=== PATIENT | female | born 1995 | race American Indian/Alaskan Native ===

== ENCOUNTER 2020-07-28 02:50 | Inpatient (IN) | payer OTHER ==
[2020-07-28 04:20] LABS: Hemoglobin 10.7 gm/dl (10.1-14.3)
[2020-07-28 04:31] LABS: Mean Corpuscular Volume 74 fl (79-97); Red Blood Count 4.18 M/mm3 (3.65-5.03)
[2020-07-28 04:32] LABS: Mean Corpuscular HGB Conc 35 % (30-34); Platelet Count 394 K/mm3 (140-440); Red Cell Distribution Width 18.2 % (13.2-15.2)
[2020-07-28 04:35] LABS: BUN/Creatinine Ratio 10; Blood Urea Nitrogen 8 mg/dL (7-17); Calcium 9.2 mg/dL (8.4-10.2); Hemolysis Index 4
[2020-07-28 05:13] LABS: Anisocytosis 1+; Band Neutrophils # (Manual) 0.8 K/mm3; Basophils % (Manual) 0 % (0.0-1.8); Hypochromasia 1+; Total Cells Counted 100
[2020-07-28 05:14] LABS: Schistocytes Few; Sickle Cells Few; Target Cells 1+
[2020-07-28 05:15] LABS: Platelet Estimate Consistent w Auto
[2020-07-28] MEDS ORDERED: LACTATED RINGERS 1000 ML IV SOLN IV ONE (08:26)
[2020-07-28] MEDS ORDERED: MORPHINE 4 MG/1 ML INJ IV ONE (08:26)
[2020-07-28] MEDS ORDERED: ALBUTEROL 2.5 MG/3 ML NEBU IH ONE (08:27)
--- NOTE | 2020-07-28 08:28 | Emergency Department Report ---
ED General Adult HPI - General Chief complaint: Sickle Cell Crisis Stated complaint: SICKLE CELL CRISIS PUI?: No Time Seen by Provider: 07/28/20 08:12 Source: patient, RN notes reviewed Mode of arrival: Ambulatory Limitations: No Limitations - History of Present Illness Initial comments: The patient was evaluated in the emergency department for symptoms described in the history of present illness. He/she was evaluated in the context of the global COVID-19 pandemic, which necessitated consideration that the patient might be at risk for infection with the virus that causes COVID-19. Institutional protocols and algorithms that pertain to the evaluation of patients at risk for COVID-19 are in a state of rapid change based on information released by regulatory bodies including the CDC and federal and state organizations. These policies and algorithms were followed during the patient's care in the emergency department. Please note that these policies, procedures and recommendations changed on a rapid basis. During the history and physical examination, I am chaperoned by nurse Екатерина Sandoval This is a 24-year-old female. She is not known to myself previously. She recently moved here from [facility]. She reports a history of sickle cell disease. She states that she is not , and has not delivered or given within the past 6 weeks. Patient presents to the ER with a primary complaint of bilateral lower extremity, and upper extremity pain, secondary to sickle cell crisis. She reports that for the past week or so, she has been having "flu symptoms", which include sore throat, dry cough. No loss of taste, no loss of smell. No exposure to Covid positive individuals that she is aware of. She also endorses intermittent shaking chills, and rigors. She states that she was feeling okay at home, taking [id number] ibuprofen/Advil. However, she reports that her lower extremities and upper extremities began to hurt her last night and this morning, consistent with prior episodes of sickle cell crisis and pain. Positive facial congestion, positive nasal congestion, positive cough, positive mild shortness of breath -: Gradual, days(s) Location: left, right, upper extremity, lower extremity Radiation: non-radiation Severity scale (0 -10): 9 Consistency: constant Improves with: medication, rest Worsens with: movement - Related Data Home Medications Medication Instructions Recorded Confirmed Last Taken Acetaminophen [Acetaminophen ER] 650 mg PO Q4H PRN 07/28/20 07/28/20 Unknown Allergies Allergy/AdvReac Type Severity Reaction Status Date / Time No Known Allergies Allergy Unverified 07/28/20 03:52 ED Review of Systems ROS: Stated complaint: SICKLE CELL CRISIS Other details as noted in HPI Constitutional: chills, fever, malaise, weakness ENT: other. denies: epistaxis Respiratory: cough, shortness of breath Cardiovascular: denies: chest pain Gastrointestinal: denies: abdominal pain, nausea, vomiting, diarrhea Genitourinary: denies: dysuria Musculoskeletal: arthralgia, myalgia Skin: denies: lesions Neurological: weakness Hematological/Lymphatic: denies: easy bleeding ED Past Medical Hx - Past Medical History Previous Medical History?: Yes Hx Sickle Cell Disease: Yes - Surgical History Past Surgical History?: No - Social History Smoking Status: Never Smoker Substance Use Type: None - Medications Home Medications: Home Medications Medication Instructions Recorded Confirmed Last Taken Type Acetaminophen [Acetaminophen ER] 650 mg PO Q4H PRN 07/28/20 07/28/20 Unknown History ED Physical Exam - General Limitations: No Limitations General appearance: alert, in no apparent distress - Head Head exam: Present: atraumatic, normocephalic - Eye Eye exam: Present: normal appearance, EOMI. Absent: nystagmus - ENT ENT exam: Present: normal exam, normal orophraynx, mucous membranes moist, normal external ear exam - Neck Neck exam: Present: normal inspection, full ROM. Absent: tenderness, meningismus - Respiratory Respiratory exam: Present: rhonchi (Right-sided thoracic rhonchi noted.). Absent: respiratory distress, wheezes, rales, stridor - Cardiovascular Cardiovascular Exam: Present: normal rhythm, tachycardia, normal heart sounds. Absent: bradycardia, irregular rhythm, systolic murmur, diastolic murmur, rubs, gallop - GI/Abdominal GI/Abdominal exam: Present: soft. Absent: distended, tenderness, guarding, rebound, rigid, pulsatile mass - Extremities Exam Extremities exam: Present: normal inspection, full ROM, other (2+ pulses noted in the bilateral upper and lower extremities. There is no palpable cord. negative Homans sign. Muscular compartments are soft. The pelvis is stable.). Absent: pedal edema, calf tenderness - Back Exam Back exam: Present: normal inspection, full ROM. Absent: tenderness, CVA tend erness (R), CVA tenderness (L), paraspinal tenderness, vertebral tenderness - Neurological Exam Neurological exam: Present: alert, other (No facial droop. Tongue midline. Extraocular movements intact bilaterally. Facial sensation intact to light touch in V1, V2, V3 distribution bilaterally. 5 and a 5 strength in 4 extremities. Sensation intact to light touch in 4 extremities.). Absent: motor sensory deficit - Psychiatric Psychiatric exam: Present: normal affect, normal mood - Skin Skin exam: Present: warm, dry, intact, normal color. Absent: rash ED Course Vital Signs 07/28/20 07/28/20 07/28/20 03:48 08:14 08:16 Temperature 100.0 F H 98.6 F Pulse Rate 118 H 113 H 113 H Pulse Rate [ Posterior Right Bases] Respiratory 18 24 Rate Respiratory Rate [Posterior Right Bases] Blood Pressure 114/63 Blood Pressure 113/74 [Left] O2 Sat by Pulse 95 100 Oximetry 07/28/20 07/28/20 09:47 09:49 Temperature 100.2 F H Pulse Rate 113 H Pulse Rate [ 114 H Posterior Right Bases] Respiratory 24 Rate Respiratory 18 Rate [Posterior Right Bases] Blood Pressure Blood Pressure 106/51 [Left] O2 Sat by Pulse 100 Oximetry ED Medical Decision Making - Lab Data Result diagrams: 07/28/20 04:06 07/28/20 04:06 Vital Signs 07/28/20 07/28/20 08:14 08:16 Temperature 98.6 F Pulse Rate 113 H 113 H Respiratory 24 Rate Blood Pressure 113/74 [Left] O2 Sat by Pulse 100 Oximetry Lab Results 07/28/20 07/28/20 07/28/20 Range/Units 04:06 04:06 04:06 WBC 38.5 H (4.5-11.0) K/mm3 RBC 4.18 (3.65-5.03) M/mm3 Hgb 10.7 (10.1-14.3) gm/dl Hct 31.0 (30.3-42.9) % MCV 74 L (79-97) fl MCH 26 L (28-32) pg MCHC 35 H (30-34) % RDW 18.2 H (13.2-15.2) % Plt Count 394 (140-440) K/mm3 Add Manual Diff Complete Total Counted 100 Seg Neuts % (Manual) 85.0 H (40.0-70.0) % Band Neutrophils % 2.0 % Lymphocytes % (Manual) 2.0 L (13.4-35.0) % Reactive Lymphs % (Man) 0 % Monocytes % (Manual) 10.0 H (0.0-7.3) % Eosinophils % (Manual) 1.0 (0.0-4.3) % Basophils % (Manual) 0 (0.0-1.8) % Metamyelocytes % 0 % Myelocytes % 0 % Promyelocytes % 0 % Blast Cells % 0 % Nucleated RBC % 1.0 H (0.0-0.9) % Seg Neutrophils # Man 32.7 H (1.8-7.7) K/mm3 Band Neutrophils # 0.8 K/mm3 Lymphocytes # (Manual) 0.8 L (1.2-5.4) K/mm3 Abs React Lymphs (Man) 0.0 K/mm3 Monocytes # (Manual) 3.9 H (0.0-0.8) K/mm3 Eosinophils # (Manual) 0.4 (0.0-0.4) K/mm3 Basophils # (Manual) 0.0 (0.0-0.1) K/mm3 Metamyelocytes # 0.0 K/mm3 Myelocytes # 0.0 K/mm3 Promyelocytes # 0.0 K/mm3 Blast Cells # 0.0 K/mm3 WBC Morphology Not Reportable Hypersegmented Neuts Not Reportable Hyposegmented Neuts Not Reportable Hypogranular Neuts Not Reportable Smudge Cells Not Reportable Toxic Granulation Not Reportable Toxic Vacuolation Not Reportable Dohle Bodies Not Reportable Pelger-Huet Anomaly Not Reportable Melissa Rods Not Reportable Platelet Estimate Consistent w auto Clumped Platelets Not Reportable Plt Clumps, EDTA Not Reportable Large Platelets Not Reportable Giant Platelets Not Reportable Platelet Satelliting Not Reportable Plt Morphology Comment Not Reportable RBC Morphology Not Reportable Dimorphic RBCs Not Reportable Polychromasia Few Hypochromasia 1+ Poikilocytosis Not Reportable Anisocytosis 1+ Microcytosis Not Reportable Macrocytosis Not Reportable Spherocytes Not Reportable Pappenheimer Bodies Not Reportable Sickle Cells Few Target Cells 1+ Tear Drop Cells Not Reportable Ovalocytes Not Reportable Helmet Cells Not Reportable [place] Bodies Not Reportable [place] Rings Not Reportable [place] Cells Not Reportable Bite Cells Not Reportable Crenated Cell Not Reportable Elliptocytes Not Reportable Acanthocytes (Spur) Not Reportable Rouleaux Not Reportable Hemoglobin C Crystals Not Reportable Schistocytes Few Malaria parasites Not Reportable Percent Retic 4.63 H (0.78-2.58) % Hugo Bodies Not Reportable Hem Pathologist Commnt No Sodium 137 (137-145) mmol/L Potassium 3.8 (3.6-5.0) mmol/L Chloride 103.7 (98-107) mmol/L Carbon Dioxide 21 L (22-30) mmol/L Anion Gap 16 mmol/L BUN 8 (7-17) mg/dL Creatinine 0.8 (0.6-1.2) mg/dL Estimated GFR > 60 ml/min BUN/Creatinine Ratio 10 % Glucose 114 H (65-100) mg/dL Calcium 9.2 (8.4-10.2) mg/dL HCG, Qual Negative (Negative) - EKG Data -: EKG Interpreted by Ne EKG shows normal: sinus rhythm Rate: tachycardia - EKG Data When compared to previous EKG there are: previous EKG unavailable 07/28/20 09:05 Sinus tachycardia, 105 bpm, normal axis, QTC 440 ms, low voltage, abnormal EKG, no prior for comparison, the EKG is not a STEMI - Radiology Data Radiology results: pending, report reviewed, image reviewed - Medical Decision Making Differential diagnosis, including but not limited to: Sickle cell crisis, bacteremia, viremia, pneumonia, urinary tract infection Assessment and plan: 24-year-old female who describes a viral syndrome, shaking chills, intermittent fever, now with focal rhonchi in her right hemithorax and lung field, suspicious for post viral pneumonia. Covid also possibility, although I do not have high suspicion for Covid. Patient ruling in for systemic inflammatory response syndrome, manifest by tachycardia, and leukocytosis. Meets criteria for hospitalization secondary to the aforementioned, and also given that she does not have an outpatient primary care doctor with whom she can reliably follow-up with. Do not have high suspicion for strep. Check rapid flu, to appropriately cohort patient, x-ray the chest, blood cultures, lactic acid, urinalysis, administer albuterol, pain medication, fluids, ceftriaxone, Covid screen, and admit patient to the medical service. I have discussed this plan of care with the patient. She is amenable to this plan of care. The hospital physician, Dr. Power, is to admit the patient to the medical service for the aforementioned. Critical care attestation.: If time is entered above; I have spent that time in minutes in the direct care of this critically ill patient, excluding procedure time. ED Disposition Clinical Impression: SIRS (systemic inflammatory response syndrome), Sickle cell crisis, Viral syndrome Disposition: OP ADMIT IP TO THIS HOSP Is pt being admited?: Yes Does the pt Need Aspirin: No Condition: Good
[2020-07-28] MEDS ORDERED: ONDANSETRON 4 MG/2 ML INJ ONE (09:00)
[2020-07-28] MEDS ORDERED: ONDANSETRON 4 MG/2 ML INJ IV ONE (09:12)
[2020-07-28] MEDS: cefTRIAXone/NS 2 GM/100 ML 2 GM/100 ML BAG IV SCH (09:37)
--- NOTE | 2020-07-28 10:04 | History and Physical Report ---
History of Present Illness Date of examination: 07/28/20 Date of admission: 07/28/20 09:17 Chief complaint: sickle cell pain crisis History of present illness: 24-year-old female with significant past medical history of sickle cell disease presents with complaint of bilateral lower extremity, and upper extremity pain beginning last night progressively worsening this morning associated with flu- like symptoms including sore throat, dry cough, chills and rigors but no fever. The patient denies loss of taste or exposure to Covid positive individuals. No headache or visual disturbances. She does report shortness of breath with minimal exertion. Past History Past Medical History: other (Sickle cell disease) Past Surgical History: No surgical history Social history: no significant social history Family history: no significant family history Medications and Allergies Allergies Allergy/AdvReac Type Severity Reaction Status Date / Time No Known Allergies Allergy Unverified 07/28/20 03:52 Home Medications Medication Instructions Recorded Confirmed Last Taken Type Acetaminophen [Acetaminophen ER] 650 mg PO Q4H PRN 07/28/20 07/28/20 Unknown History Active Meds: Active Medications Ceftriaxone Sodium (Rocephin/Ns 2 Gm/100 Ml) 2 gm in 100 mls @ 200 mls/hr IV NOW LUIS ENRIQUE; Protocol Last Admin: 07/28/20 09:37 Dose: 200 mls/hr Documented by: Review of Systems All systems: negative Exam - Constitutional Vitals: Temp Pulse Resp BP Pulse Ox 100.2 F H 113 H 24 106/51 100 07/28/20 09:49 07/28/20 09:49 07/28/20 09:49 07/28/20 09:49 07/28/20 09:49 General appearance: Present: no acute distress, well-nourished - EENT Eyes: Present: PERRL ENT: hearing intact, clear oral mucosa - Neck Neck: Present: supple, normal ROM - Respiratory Respiratory effort: normal Respiratory: bilateral: CTA - Cardiovascular Heart Sounds: Present: S1 & S2. Absent: rub, click - Extremities Extremities: pulses symmetrical, No edema Peripheral Pulses: within normal limits - Abdominal General gastrointestinal: Present: soft, non-tender, non-distended, normal bowel sounds Female genitourinary: Present: normal - Integumentary Integumentary: Present: clear, warm, dry - Musculoskeletal Musculoskeletal: gait normal, strength equal bilaterally - Psychiatric Psychiatric: appropriate mood/affect, intact judgment & insight - Neurologic Neurologic: CNII-XII intact, moves all extremities Results - Labs CBC & Chem 7: 07/28/20 04:06 07/28/20 04:06 Labs: Laboratory Last Values WBC 38.5 K/mm3 (4.5-11.0) H 07/28/20 04:06 RBC 4.18 M/mm3 (3.65-5.03) 07/28/20 04:06 Hgb 10.7 gm/dl (10.1-14.3) 07/28/20 04:06 Hct 31.0 % (30.3-42.9) 07/28/20 04:06 MCV 74 fl (79-97) L 07/28/20 04:06 MCH 26 pg (28-32) L 07/28/20 04:06 MCHC 35 % (30-34) H 07/28/20 04:06 RDW 18.2 % (13.2-15.2) H 07/28/20 04:06 Plt Count 394 K/mm3 (140-440) 07/28/20 04:06 Add Manual Diff Complete 07/28/20 04:06 Total Counted 100 07/28/20 04:06 Seg Neuts % (Manual) 85.0 % (40.0-70.0) H 07/28/20 04:06 Band Neutrophils % 2.0 % 07/28/20 04:06 Lymphocytes % (Manual) 2.0 % (13.4-35.0) L 07/28/20 04:06 Reactive Lymphs % (Man) 0 % 07/28/20 04:06 Monocytes % (Manual) 10.0 % (0.0-7.3) H 07/28/20 04:06 Eosinophils % (Manual) 1.0 % (0.0-4.3) 07/28/20 04:06 Basophils % (Manual) 0 % (0.0-1.8) 07/28/20 04:06 Metamyelocytes % 0 % 07/28/20 04:06 Myelocytes % 0 % 07/28/20 04:06 Promyelocytes % 0 % 07/28/20 04:06 Blast Cells % 0 % 07/28/20 04:06 Nucleated RBC % 1.0 % (0.0-0.9) H 07/28/20 04:06 Seg Neutrophils # Man 32.7 K/mm3 (1.8-7.7) H 07/28/20 04:06 Band Neutrophils # 0.8 K/mm3 07/28/20 04:06 Lymphocytes # (Manual) 0.8 K/mm3 (1.2-5.4) L 07/28/20 04:06 Abs React Lymphs (Man) 0.0 K/mm3 07/28/20 04:06 Monocytes # (Manual) 3.9 K/mm3 (0.0-0.8) H 07/28/20 04:06 Eosinophils # (Manual) 0.4 K/mm3 (0.0-0.4) 07/28/20 04:06 Basophils # (Manual) 0.0 K/mm3 (0.0-0.1) 07/28/20 04:06 Metamyelocytes # 0.0 K/mm3 07/28/20 04:06 Myelocytes # 0.0 K/mm3 07/28/20 04:06 Promyelocytes # 0.0 K/mm3 07/28/20 04:06 Blast Cells # 0.0 K/mm3 07/28/20 04:06 WBC Morphology Not Reportable 07/28/20 04:06 Hypersegmented Neuts Not Reportable 07/28/20 04:06 Hyposegmented Neuts Not Reportable 07/28/20 04:06 Hypogranular Neuts Not Reportable 07/28/20 04:06 Smudge Cells Not Reportable 07/28/20 04:06 Toxic Granulation Not Reportable 07/28/20 04:06 Toxic Vacuolation Not Reportable 07/28/20 04:06 Dohle Bodies Not Reportable 07/28/20 04:06 Pelger-Huet Anomaly Not Reportable 07/28/20 04:06 Melissa Rods Not Reportable 07/28/20 04:06 Platelet Estimate Consistent w auto 07/28/20 04:06 Clumped Platelets Not Reportable 07/28/20 04:06 Plt Clumps, EDTA Not Reportable 07/28/20 04:06 Large Platelets Not Reportable 07/28/20 04:06 Giant Platelets Not Reportable 07/28/20 04:06 Platelet Satelliting Not Reportable 07/28/20 04:06 Plt Morphology Comment Not Reportable 07/28/20 04:06 RBC Morphology Not Reportable 07/28/20 04:06 Dimorphic RBCs Not Reportable 07/28/20 04:06 Polychromasia Few 07/28/20 04:06 Hypochromasia 1+ 07/28/20 04:06 Poikilocytosis Not Reportable 07/28/20 04:06 Anisocytosis 1+ 07/28/20 04:06 Microcytosis Not Reportable 07/28/20 04:06 Macrocytosis Not Reportable 07/28/20 04:06 Spherocytes Not Reportable 07/28/20 04:06 Pappenheimer Bodies Not Reportable 07/28/20 04:06 Sickle Cells Few 07/28/20 04:06 Target Cells 1+ 07/28/20 04:06 Tear Drop Cells Not Reportable 07/28/20 04:06 Ovalocytes Not Reportable 07/28/20 04:06 Helmet Cells Not Reportable 07/28/20 04:06 Gonzales-[place] Bodies Not Reportable 07/28/20 04:06 [place] Rings Not Reportable 07/28/20 04:06 Mary Cells Not Reportable 07/28/20 04:06 Bite Cells Not Reportable 07/28/20 04:06 Crenated Cell Not Reportable 07/28/20 04:06 Elliptocytes Not Reportable 07/28/20 04:06 Acanthocytes (Spur) Not Reportable 07/28/20 04:06 Rouleaux Not Reportable 07/28/20 04:06 Hemoglobin C Crystals Not Reportable 07/28/20 04:06 Schistocytes Few 07/28/20 04:06 Malaria parasites Not Reportable 07/28/20 04:06 Percent Retic 4.63 % (0.78-2.58) H 07/28/20 04:06 Hugo Bodies Not Reportable 07/28/20 04:06 Hem Pathologist Commnt No 07/28/20 04:06 Sodium 137 mmol/L (137-145) 07/28/20 04:06 Potassium 3.8 mmol/L (3.6-5.0) 07/28/20 04:06 Chloride 103.7 mmol/L (98-107) 07/28/20 04:06 Carbon Dioxide 21 mmol/L (22-30) L 07/28/20 04:06 Anion Gap 16 mmol/L 07/28/20 04:06 BUN 8 mg/dL (7-17) 07/28/20 04:06 Creatinine 0.8 mg/dL (0.6-1.2) 07/28/20 04:06 Estimated GFR > 60 ml/min 07/28/20 04:06 BUN/Creatinine Ratio 10 % 07/28/20 04:06 Glucose 114 mg/dL (65-100) H 07/28/20 04:06 Lactic Acid 0.90 mmol/L (0.7-2.0) 07/28/20 08:50 Calcium 9.2 mg/dL (8.4-10.2) 07/28/20 04:06 Magnesium 1.90 mg/dL (1.7-2.3) 07/28/20 08:50 Total Creatine Kinase 86 units/L (30-135) 07/28/20 08:50 HCG, Qual Negative (Negative) 07/28/20 04:06 Group A Strep Rapid Negative (Negative) 07/28/20 09:00 Fagan/IV: IV Catheter Type [Right INT / Saline Lock Forearm] Assessment and Plan Assessment and plan: Sickle cell vaso-occlusive crisis. Patient will be placed on the sickle cell pathway and treated with supportive care of IV pain medication and IV fluid hydration. Sepsis. Patient meets criteria given the leukocytosis, tachycardia and diagnosi s of acute bronchitis. Check rapid flu, to appropriately cohort patient for PUI, chest x-ray, follow-up blood cultures, lactic acid, urinalysis, administer albuterol, pain medication, fluids, ceftriaxone, Covid screen, and admit patient to medical floor. Acute bronchitis. Will start IV antibiotics
--- NOTE | 2020-07-28 10:24 | XRay Report ---
XR chest 1V ap INDICATION / CLINICAL INFORMATION: cough rhonchi, right sided pna COMPARISON: None available. FINDINGS: SUPPORT DEVICES: None. HEART / MEDIASTINUM: No significant abnormality. LUNGS / PLEURA: Parenchymal opacity is seen in the right lung base Costophrenic sulci are sharp. No p neumothorax. ADDITIONAL FINDINGS: No significant additional findings. IMPRESSION: 1. Parenchymal opacities in the right lung base could be related to airspace disease such as pneumoni a or atelectasis. Signer Name: Joaquim Rodas MD Signed: 07/28/2020 10:19 AM Workstation Name: [id number]
[2020-07-28] MEDS ORDERED: MAGNESIUM HYDROXIDE (MOM) ORAL LIQD UDC PO PRN (11:00)
[2020-07-28] MEDS ORDERED: HYDROmorphone 2 MG/1 ML INJ IV PRN (11:00)
[2020-07-28] MEDS ORDERED: ONDANSETRON 4 MG/2 ML INJ IV PRN (11:00)
[2020-07-28] MEDS: HYDROmorphone 1 MG/1 ML INJ IV PRN ×3 (13:20→21:12)
[2020-07-28] MEDS: AZITHROMYCIN 500 MG in SODIUM CHLORIDE 0.9% 250ML 250 ML IV SCH (13:20)
[2020-07-28] MEDS: ACETAMINOPHEN 325 MG TAB PO PRN (14:26)
[2020-07-28] MEDS: SENNOSIDES 8.6 MG TAB PO SCH (22:00)
[2020-07-29] MEDS: HYDROmorphone 1 MG/1 ML INJ IV PRN ×5 (01:16→21:12)
[2020-07-29] MEDS: diphenhydrAMINE 50 MG/ML VIAL IV PRN ×3 (03:15→21:13)
[2020-07-29 03:40] LABS: Bilirubin,Urine NEG (Negative); Blood,Urine SM (Negative); Color,Urine Yellow (Yellow); Protein,Urine <15 mg/dL mg/dL (Negative)
[2020-07-29 06:11] LABS: Hematocrit 27.6 % (30.3-42.9); Hemoglobin 9.3 gm/dl (10.1-14.3); Mean Corpuscular HGB Conc 34 % (30-34); Mean Corpuscular Volume 75 fl (79-97); Platelet Count 327 K/mm3 (140-440); Red Blood Count 3.69 M/mm3 (3.65-5.03); Red Cell Distribution Width 18.9 % (13.2-15.2)
[2020-07-29 06:17] LABS: Basophils # (Auto) 0.2 K/mm3 (0.0-0.1); Basophils % (Auto) 0.5 % (0.0-1.8); Eosinophils # (Auto) 0.1 K/mm3 (0.0-0.4); Eosinophils % (Auto) 0.2 % (0.0-4.3); Lymphocytes % (Auto) 17.5 % (13.4-35.0); Monocytes # (Auto) 3.4 K/mm3 (0.0-0.8); Monocytes % (Auto) 10.2 % (0.0-7.3)
[2020-07-29] MEDS: D5W/0.45% NACL 1,000 ML IV SCH ×2 (06:39→16:54)
--- NOTE | 2020-07-29 07:44 | Progress Note ---
Assessment and Plan Assessment and plan: Sickle cell vaso-occlusive crisis. Patient will be placed on the sickle cell pathway and treated with supportive care of IV pain medication and IV fluid hydration. Sepsis. Patient meets criteria given the leukocytosis, tachycardia and diagnosis of acute bronchitis. Check rapid flu, to appropriately cohort patient for PUI, chest x-ray, follow-up blood cultures, lactic acid, urinalysis, administer albuterol, pain medication, fluids, ceftriaxone, Covid screen, and admit patient to medical floor. Community-acquired right lower lobe pneumonia. IV antibiotics. 07/29/2020. Continue IV antibiotics and follow-up blood cultures. Continue supportive care with IV fluid hydration, pain control. History Interval history: No new issues overnight. Hospitalist Physical - Constitutional Vitals: Temp Pulse Resp BP Pulse Ox 99.9 F H 101 H 20 146/78 98 07/29/20 05:45 07/29/20 05:45 07/29/20 05:45 07/29/20 05:45 07/29/20 05:45 General appearance: Present: no acute distress, well-nourished - EENT Eyes: Present: PERRL, EOM intact ENT: hearing intact, clear oral mucosa, dentition normal - Neck Neck: Present: supple, normal ROM - Respiratory Respiratory effort: normal Respiratory: bilateral: CTA - Cardiovascular Rhythm: regular Heart Sounds: Present: S1 & S2. Absent: gallop, rub - Extremities Extremities: no ischemia, No edema, Full ROM - Abdominal General gastrointestinal: soft, non-tender, non-distended, normal bowel sounds - Integumentary Integumentary: Present: clear, warm, dry - Neurologic Neurologic: CNII-XII intact, moves all extremities Results - Labs CBC & Chem 7: 07/29/20 05:25 07/28/20 04:06 Labs: Laboratory Last Values WBC 32.8 K/mm3 (4.5-11.0) H 07/29/20 05:25 RBC 3.69 M/mm3 (3.65-5.03) 07/29/20 05:25 Hgb 9.3 gm/dl (10.1-14.3) L 07/29/20 05:25 Hct 27.6 % (30.3-42.9) L 07/29/20 05:25 MCV 75 fl (79-97) L 07/29/20 05:25 MCH 25 pg (28-32) L 07/29/20 05:25 MCHC 34 % (30-34) 07/29/20 05:25 RDW 18.9 % (13.2-15.2) H 07/29/20 05:25 Plt Count 327 K/mm3 (140-440) 07/29/20 05:25 Lymph % (Auto) 17.5 % (13.4-35.0) 07/29/20 05:25 Bailey % (Auto) 10.2 % (0.0-7.3) H 07/29/20 05:25 Eos % (Auto) 0.2 % (0.0-4.3) 07/29/20 05:25 Baso % (Auto) 0.5 % (0.0-1.8) 07/29/20 05:25 Lymph # (Auto) Back Facer 07/29/20 05:25 [place] # (Auto) 3.4 K/mm3 (0.0-0.8) H 07/29/20 05:25 Eos # (Auto) 0.1 K/mm3 (0.0-0.4) 07/29/20 05:25 Baso # (Auto) 0.2 K/mm3 (0.0-0.1) H 07/29/20 05:25 Add Manual Diff Complete 07/28/20 04:06 Total Counted 100 07/28/20 04:06 Seg Neutrophils % 71.6 % (40.0-70.0) H 07/29/20 05:25 Seg Neuts % (Manual) 85.0 % (40.0-70.0) H 07/28/20 04:06 Band Neutrophils % 2.0 % 07/28/20 04:06 Lymphocytes % (Manual) 2.0 % (13.4-35.0) L 07/28/20 04:06 Reactive Lymphs % (Man) 0 % 07/28/20 04:06 Monocytes % (Manual) 10.0 % (0.0-7.3) H 07/28/20 04:06 Eosinophils % (Manual) 1.0 % (0.0-4.3) 07/28/20 04:06 Basophils % (Manual) 0 % (0.0-1.8) 07/28/20 04:06 Metamyelocytes % 0 % 07/28/20 04:06 Myelocytes % 0 % 07/28/20 04:06 Promyelocytes % 0 % 07/28/20 04:06 Blast Cells % 0 % 07/28/20 04:06 Nucleated RBC % 1.0 % (0.0-0.9) H 07/28/20 04:06 Seg Neutrophils # 23.5 K/mm3 (1.8-7.7) H 07/29/20 05:25 Seg Neutrophils # Man 32.7 K/mm3 (1.8-7.7) H 07/28/20 04:06 Band Neutrophils # 0.8 K/mm3 07/28/20 04:06 Lymphocytes # (Manual) 0.8 K/mm3 (1.2-5.4) L 07/28/20 04:06 Abs React Lymphs (Man) 0.0 K/mm3 07/28/20 04:06 Monocytes # (Manual) 3.9 K/mm3 (0.0-0.8) H 07/28/20 04:06 Eosinophils # (Manual) 0.4 K/mm3 (0.0-0.4) 07/28/20 04:06 Basophils # (Manual) 0.0 K/mm3 (0.0-0.1) 07/28/20 04:06 Metamyelocytes # 0.0 K/mm3 07/28/20 04:06 Myelocytes # 0.0 K/mm3 07/28/20 04:06 Promyelocytes # 0.0 K/mm3 07/28/20 04:06 Blast Cells # 0.0 K/mm3 07/28/20 04:06 WBC Morphology Not Reportable 07/28/20 04:06 Hypersegmented Neuts Not Reportable 07/28/20 04:06 Hyposegmented Neuts Not Reportable 07/28/20 04:06 Hypogranular Neuts Not Reportable 07/28/20 04:06 Smudge Cells Not Reportable 07/28/20 04:06 Toxic Granulation Not Reportable 07/28/20 04:06 Toxic Vacuolation Not Reportable 07/28/20 04:06 Dohle Bodies Not Reportable 07/28/20 04:06 Pelger-Huet Anomaly Not Reportable 07/28/20 04:06 Melissa Rods Not Reportable 07/28/20 04:06 Platelet Estimate Consistent w auto 07/28/20 04:06 Clumped Platelets Not Reportable 07/28/20 04:06 Plt Clumps, EDTA Not Reportable 07/28/20 04:06 Large Platelets Not Reportable 07/28/20 04:06 Giant Platelets Not Reportable 07/28/20 04:06 Platelet Satelliting Not Reportable 07/28/20 04:06 Plt Morphology Comment Not Reportable 07/28/20 04:06 RBC Morphology Not Reportable 07/28/20 04:06 Dimorphic RBCs Not Reportable 07/28/20 04:06 Polychromasia Few 07/28/20 04:06 Hypochromasia 1+ 07/28/20 04:06 Poikilocytosis Not Reportable 07/28/20 04:06 Anisocytosis 1+ 07/28/20 04:06 Microcytosis Not Reportable 07/28/20 04:06 Macrocytosis Not Reportable 07/28/20 04:06 Spherocytes Not Reportable 07/28/20 04:06 Pappenheimer Bodies Not Reportable 07/28/20 04:06 Sickle Cells Few 07/28/20 04:06 Target Cells 1+ 07/28/20 04:06 Tear Drop Cells Not Reportable 07/28/20 04:06 Ovalocytes Not Reportable 07/28/20 04:06 Helmet Cells Not Reportable 07/28/20 04:06 [place] Bodies Not Reportable 07/28/20 04:06 [place] Rings Not Reportable 07/28/20 04:06 [place] Cells Not Reportable 07/28/20 04:06 Bite Cells Not Reportable 07/28/20 04:06 Crenated Cell Not Reportable 07/28/20 04:06 Elliptocytes Not Reportable 07/28/20 04:06 Acanthocytes (Spur) Not Reportable 07/28/20 04:06 Rouleaux Not Reportable 07/28/20 04:06 Hemoglobin C Crystals Not Reportable 07/28/20 04:06 Schistocytes Few 07/28/20 04:06 Malaria parasites Not Reportable 07/28/20 04:06 Percent Retic 4.41 % (0.78-2.58) H 07/29/20 05:25 Hugo Bodies Not Reportable 07/28/20 04:06 Hem Pathologist Commnt No 07/28/20 04:06 Sodium 137 mmol/L (137-145) 07/28/20 04:06 Potassium 3.8 mmol/L (3.6-5.0) 07/28/20 04:06 Chloride 103.7 mmol/L (98-107) 07/28/20 04:06 Carbon Dioxide 21 mmol/L (22-30) L 07/28/20 04:06 Anion Gap 16 mmol/L 07/28/20 04:06 BUN 8 mg/dL (7-17) 07/28/20 04:06 Creatinine 0.8 mg/dL (0.6-1.2) 07/28/20 04:06 Estimated GFR > 60 ml/min 07/28/20 04:06 BUN/Creatinine Ratio 10 % 07/28/20 04:06 Glucose 114 mg/dL (65-100) H 07/28/20 04:06 Lactic Acid 0.90 mmol/L (0.7-2.0) 07/28/20 08:50 Calcium 9.2 mg/dL (8.4-10.2) 07/28/20 04:06 Magnesium 1.90 mg/dL (1.7-2.3) 07/28/20 08:50 Total Creatine Kinase 86 units/L (30-135) 07/28/20 08:50 HCG, Qual Negative (Negative) 07/28/20 04:06 Urine Color Yellow (Yellow) 07/29/20 Unknown Urine Turbidity Clear (Clear) 07/29/20 Unknown Urine pH 7.0 (5.0-7.0) 07/29/20 Unknown Ur Specific [place] 1.004 (1.003-1.030) 07/29/20 Unknown Urine Protein <15 mg/dl mg/dL (Negative) 07/29/20 Unknown Urine Glucose (UA) Neg mg/dL (Negative) 07/29/20 Unknown Urine Ketones Neg mg/dL (Negative) 07/29/20 Unknown Urine Blood Sm (Negative) 07/29/20 Unknown Urine Nitrite Neg (Negative) 07/29/20 Unknown Urine Bilirubin Neg (Negative) 07/29/20 Unknown Urine Urobilinogen 4.0 mg/dL (<2.0) 07/29/20 Unknown Ur Leukocyte Esterase Mod (Negative) 07/29/20 Unknown Urine WBC (Auto) 19.0 /HPF (0.0-6.0) H 07/29/20 Unknown Urine RBC (Auto) 2.0 /HPF (0.0-6.0) 07/29/20 Unknown U Epithel Cells (Auto) 2.0 /HPF (0-13.0) 07/29/20 Unknown Coronavirus (PCR) Negative (Negative) 07/28/20 08:26 Influenza A (Rapid) Negative (Negative) 07/28/20 08:59 Influenza B (Rapid) Negative (Negative) 07/28/20 08:59 Group A Strep Rapid Negative (Negative) 07/28/20 09:00 Blood Type B POSITIVE 07/28/20 10:38 Antibody Screen Negative 07/28/20 10:38 Microbiology: Microbiology 07/28/20 08:55 Peripheral/Venous Blood Culture - Preliminary Culture in Progress 07/28/20 08:50 Peripheral/Venous Blood Culture - Preliminary Culture in Progress Fagan/IV: Voiding Method Toilet IV Catheter Type [Left Wrist] INT / Saline Lock IV Catheter Type [Right INT / Saline Lock Forearm] Active Medications - Current Medications Current Medications: Generic Name Dose Route Start Last Admin Trade Name Freq PRN Reason Stop Dose Admin Acetaminophen 650 mg 07/28/20 11:00 07/28/20 14:26 Tylenol PO 650 mg Q6H PRN Administration Pain, Mild (1-3) Hydrocodone Bitart/Acetaminophen 1 each 07/28/20 11:00 [place] 10/325 PO Q4H PRN Pain, Moderate (4-6) Bisacodyl 10 mg 07/28/20 11:00 Dulcolax [place] QDAY PRN Constipation unrelieved by MOM Diphenhydramine HCl 25 mg 07/29/20 01:43 07/29/20 03:15 Benadryl IV 25 mg Q6H PRN Administration Itching Folic Acid 1 mg 07/29/20 10:00 Folvite PO QDAY LUIS ENRIQUE Hydromorphone HCl 1 mg 07/28/20 11:00 Dilaudid IV 07/29/20 10:59 Q4H PRN Pain , Severe (7-10) Hydromorphone HCl 0.25 mg 07/28/20 11:00 07/29/20 06:17 Dilaudid IV 0.25 mg Q4H PRN Administration Pain, Moderate (4-6) Ceftriaxone Sodium 2 gm in 100 mls @ 200 mls/hr 07/28/20 09:00 07/28/20 09:37 Rocephin/Ns 2 Gm/100 Ml IV 200 mls/hr NOW LUIS ENRIQUE Administration Protocol Azithromycin 500 mg/ Sodium 250 mls @ 250 mls/hr 07/28/20 11:00 07/28/20 13:20 Chloride IV 250 mls/hr Q24HR LUIS ENRIQUE Administration Protocol Dextrose/Sodium Chloride 1,000 mls @ 125 mls/hr 07/29/20 07:00 07/29/20 06:39 D5/0.45ns IV 125 mls/hr DIRECT LUIS ENRIQUE Administration Magnesium Hydroxide 30 ml 07/28/20 11:00 Milk Of Magnesia PO Q4H PRN Constipation Multivitamins 1 each 07/29/20 10:00 Theragran Tab PO QDAY [facility] Ondansetron HCl 4 mg 07/28/20 11:00 07/28/20 21:17 Zofran IV 4 mg Q8H PRN Administration Nausea And Vomiting Senna 17.2 mg 07/28/20 22:00 07/28/20 22:00 Senokot PO Not Given QHS [facility]
[2020-07-29] MEDS ORDERED: SODIUM CHLORIDE 0.9% 1000 ML 1,000 ML IV SCH (07:45)
[2020-07-29] MEDS: cefTRIAXone/NS 2 GM/100 ML 2 GM/100 ML BAG IV SCH (09:42)
[2020-07-29] MEDS: AZITHROMYCIN 500 MG in SODIUM CHLORIDE 0.9% 250ML 250 ML IV SCH (09:42)
[2020-07-29] MEDS: FOLIC ACID 1 MG TAB PO SCH (09:43)
[2020-07-29] MEDS: MULTIVITAMINS ,THERAPEUTIC TAB PO SCH (09:43)
[2020-07-29] MEDS: ACETAMINOPHEN 325 MG TAB PO PRN (13:33)
[2020-07-29] MEDS: SENNOSIDES 8.6 MG TAB PO SCH (21:15)
[2020-07-30] MEDS: ACETAMINOPHEN 325 MG TAB PO PRN (01:11)
[2020-07-30] MEDS: HYDROmorphone 1 MG/1 ML INJ IV PRN ×2 (01:12→06:04)
[2020-07-30] MEDS: D5W/0.45% NACL 1,000 ML IV SCH ×2 (04:15→21:57)
[2020-07-30] MEDS: diphenhydrAMINE 50 MG/ML VIAL IV PRN ×2 (06:04→21:55)
[2020-07-30 07:32] LABS: Hematocrit 26.5 % (30.3-42.9); Mean Corpuscular HGB Conc 34 % (30-34); Mean Corpuscular Volume 74 fl (79-97); Platelet Count 317 K/mm3 (140-440); Red Blood Count 3.57 M/mm3 (3.65-5.03); Red Cell Distribution Width 19.2 % (13.2-15.2)
[2020-07-30 07:53] LABS: Blood Urea Nitrogen 4 mg/dL (7-17); Calcium 8.9 mg/dL (8.4-10.2); Hemolysis Index 6
[2020-07-30 08:22] LABS: BUN/Creatinine Ratio 6
[2020-07-30 08:25] LABS: Basophils % (Manual) 0 % (0.0-1.8); Eosinophils % (Manual) 0 % (0.0-4.3); Total Cells Counted 100
[2020-07-30 08:53] LABS: Large Platelets Few; Macrocytosis 1+; Sickle Cells 1+; Target Cells 1+
[2020-07-30 08:54] LABS: Platelet Estimate Consistent w Auto
--- NOTE | 2020-07-30 09:42 | Progress Note ---
Assessment and Plan Assessment and plan: Sickle cell vaso-occlusive crisis. Patient will be placed on the sickle cell pathway and treated with supportive care of IV pain medication and IV fluid hydration. Sepsis. Patient meets criteria given the leukocytosis, tachycardia and diagnosis of acute bronchitis. Check rapid flu, to appropriately cohort patient for PUI, chest x-ray, follow-up blood cultures, lactic acid, urinalysis, administer albuterol, pain medication, fluids, ceftriaxone, Covid screen, and admit patient to medical floor. Community-acquired right lower lobe pneumonia. IV antibiotics. GNR UTI. 07/29/2020. Continue IV antibiotics and follow-up blood cultures. Continue supportive care with IV fluid hydration, pain control. 07/30/2020. Continue IV antibiotics. Urine culture reveals gram-negative rods. Follow-up blood cultures. Patient still with low-grade fever. Anticipate discharge in a.m. if stable and fevers better. History Interval history: No new issues overnight. Hospitalist Physical - Constitutional Vitals: Temp Pulse Resp BP Pulse Ox 99.1 F 104 H 18 123/46 92 07/30/20 04:48 07/30/20 04:48 07/30/20 04:48 07/30/20 04:48 07/30/20 04:48 General appearance: Present: no acute distress, well-nourished - EENT Eyes: Present: PERRL, EOM intact ENT: hearing intact, clear oral mucosa, dentition normal - Neck Neck: Present: supple, normal ROM - Respiratory Respiratory effort: normal Respiratory: bilateral: CTA - Cardiovascular Rhythm: regular Heart Sounds: Present: S1 & S2. Absent: gallop, rub - Extremities Extremities: no ischemia, No edema, Full ROM - Abdominal General gastrointestinal: soft, non-tender, non-distended, normal bowel sounds - Integumentary Integumentary: Present: clear, warm, dry - Neurologic Neurologic: CNII-XII intact, moves all extremities Results - Labs CBC & Chem 7: 07/30/20 06:57 07/30/20 06:57 Labs: Laboratory Last Values WBC 21.1 K/mm3 (4.5-11.0) H 07/30/20 06:57 RBC 3.57 M/mm3 (3.65-5.03) L 07/30/20 06:57 Hgb 9.0 gm/dl (10.1-14.3) L 07/30/20 06:57 Hct 26.5 % (30.3-42.9) L 07/30/20 06:57 MCV 74 fl (79-97) L 07/30/20 06:57 MCH 25 pg (28-32) L 07/30/20 06:57 MCHC 34 % (30-34) 07/30/20 06:57 RDW 19.2 % (13.2-15.2) H 07/30/20 06:57 Plt Count 317 K/mm3 (140-440) 07/30/20 06:57 Lymph % (Auto) 17.5 % (13.4-35.0) 07/29/20 05:25 [place] % (Auto) 10.2 % (0.0-7.3) H 07/29/20 05:25 Eos % (Auto) 0.2 % (0.0-4.3) 07/29/20 05:25 Baso % (Auto) 0.5 % (0.0-1.8) 07/29/20 05:25 Lymph # (Auto) Mixing Pan Tender 07/30/20 06:57 [place] # (Auto) 3.4 K/mm3 (0.0-0.8) H 07/29/20 05:25 Eos # (Auto) 0.1 K/mm3 (0.0-0.4) 07/29/20 05:25 Baso # (Auto) 0.2 K/mm3 (0.0-0.1) H 07/29/20 05:25 Add Manual Diff Complete 07/30/20 06:57 Total Counted 100 07/30/20 06:57 Seg Neutrophils % 71.6 % (40.0-70.0) H 07/29/20 05:25 Seg Neuts % (Manual) 68.0 % (40.0-70.0) 07/30/20 06:57 Band Neutrophils % 0 % 07/30/20 06:57 Lymphocytes % (Manual) 27.0 % (13.4-35.0) 07/30/20 06:57 Reactive Lymphs % (Man) 0 % 07/30/20 06:57 Monocytes % (Manual) 5.0 % (0.0-7.3) 07/30/20 06:57 Eosinophils % (Manual) 0 % (0.0-4.3) 07/30/20 06:57 Basophils % (Manual) 0 % (0.0-1.8) 07/30/20 06:57 Metamyelocytes % 0 % 07/30/20 06:57 Myelocytes % 0 % 07/30/20 06:57 Promyelocytes % 0 % 07/30/20 06:57 Blast Cells % 0 % 07/30/20 06:57 Nucleated RBC % Not Reportable 07/30/20 06:57 Seg Neutrophils # 23.5 K/mm3 (1.8-7.7) H 07/29/20 05:25 Seg Neutrophils # Man 14.3 K/mm3 (1.8-7.7) H 07/30/20 06:57 Band Neutrophils # 0.0 K/mm3 07/30/20 06:57 Lymphocytes # (Manual) 5.7 K/mm3 (1.2-5.4) H 07/30/20 06:57 Abs React Lymphs (Man) 0.0 K/mm3 07/30/20 06:57 Monocytes # (Manual) 1.1 K/mm3 (0.0-0.8) H 07/30/20 06:57 Eosinophils # (Manual) 0.0 K/mm3 (0.0-0.4) 07/30/20 06:57 Basophils # (Manual) 0.0 K/mm3 (0.0-0.1) 07/30/20 06:57 Metamyelocytes # 0.0 K/mm3 07/30/20 06:57 Myelocytes # 0.0 K/mm3 07/30/20 06:57 Promyelocytes # 0.0 K/mm3 07/30/20 06:57 Blast Cells # 0.0 K/mm3 07/30/20 06:57 WBC Morphology Not Reportable 07/30/20 06:57 Hypersegmented Neuts Not Reportable 07/30/20 06:57 Hyposegmented Neuts Not Reportable 07/30/20 06:57 Hypogranular Neuts Not Reportable 07/30/20 06:57 Smudge Cells Not Reportable 07/30/20 06:57 Toxic Granulation Not Reportable 07/30/20 06:57 Toxic Vacuolation Not Reportable 07/30/20 06:57 Dohle Bodies Not Reportable 07/30/20 06:57 Pelger-Huet Anomaly Not Reportable 07/30/20 06:57 Melissa Rods Not Reportable 07/30/20 06:57 Platelet Estimate Consistent w auto 07/30/20 06:57 Clumped Platelets Not Reportable 07/30/20 06:57 Plt Clumps, EDTA Not Reportable 07/30/20 06:57 Large Platelets Few 07/30/20 06:57 Giant Platelets Not Reportable 07/30/20 06:57 Platelet Satelliting Not Reportable 07/30/20 06:57 Plt Morphology Comment Not Reportable 07/30/20 06:57 RBC Morphology Not Reportable 07/30/20 06:57 Dimorphic RBCs Not Reportable 07/30/20 06:57 Polychromasia Few 07/30/20 06:57 Hypochromasia Not Reportable 07/30/20 06:57 Poikilocytosis Not Reportable 07/30/20 06:57 Anisocytosis Not Reportable 07/30/20 06:57 Microcytosis Not Reportable 07/30/20 06:57 Macrocytosis 1+ 07/30/20 06:57 Spherocytes Not Reportable 07/30/20 06:57 Pappenheimer Bodies Not Reportable 07/30/20 06:57 Sickle Cells 1+ 07/30/20 06:57 Target Cells 1+ 07/30/20 06:57 Tear Drop Cells Not Reportable 07/30/20 06:57 Ovalocytes Not Reportable 07/30/20 06:57 Helmet Cells Not Reportable 07/30/20 06:57 [place] Bodies Not Reportable 07/30/20 06:57 [place] Rings Not Reportable 07/30/20 06:57 [place] Cells Not Reportable 07/30/20 06:57 Bite Cells Not Reportable 07/30/20 06:57 Crenated Cell Not Reportable 07/30/20 06:57 Elliptocytes Not Reportable 07/30/20 06:57 Acanthocytes (Spur) Not Reportable 07/30/20 06:57 Rouleaux Not Reportable 07/30/20 06:57 Hemoglobin C Crystals Not Reportable 07/30/20 06:57 Schistocytes Not Reportable 07/30/20 06:57 Malaria parasites Not Reportable 07/30/20 06:57 Percent Retic 3.98 % (0.78-2.58) H 07/30/20 06:57 [place] Bodies Not Reportable 07/30/20 06:57 Hem Pathologist Commnt No 07/30/20 06:57 Sodium 138 mmol/L (137-145) 07/30/20 06:57 Potassium 3.8 mmol/L (3.6-5.0) 07/30/20 06:57 Chloride 103.0 mmol/L (98-107) 07/30/20 06:57 Carbon Dioxide 28 mmol/L (22-30) D 07/30/20 06:57 Anion Gap 11 mmol/L 07/30/20 06:57 BUN 4 mg/dL (7-17) L 07/30/20 06:57 Creatinine 0.7 mg/dL (0.6-1.2) 07/30/20 06:57 Estimated GFR > 60 ml/min 07/30/20 06:57 BUN/Creatinine Ratio 6 % 07/30/20 06:57 Glucose 93 mg/dL (65-100) 07/30/20 06:57 Lactic Acid 0.90 mmol/L (0.7-2.0) 07/28/20 08:50 Calcium 8.9 mg/dL (8.4-10.2) 07/30/20 06:57 Magnesium 1.90 mg/dL (1.7-2.3) 07/28/20 08:50 Total Creatine Kinase 86 units/L (30-135) 07/28/20 08:50 HCG, Qual Negative (Negative) 07/28/20 04:06 Urine Color Yellow (Yellow) 07/29/20 Unknown Urine Turbidity Clear (Clear) 07/29/20 Unknown Urine pH 7.0 (5.0-7.0) 07/29/20 Unknown Ur Specific [place] 1.004 (1.003-1.030) 07/29/20 Unknown Urine Protein <15 mg/dl mg/dL (Negative) 07/29/20 Unknown Urine Glucose (UA) Neg mg/dL (Negative) 07/29/20 Unknown Urine Ketones Neg mg/dL (Negative) 07/29/20 Unknown Urine Blood Sm (Negative) 07/29/20 Unknown Urine Nitrite Neg (Negative) 07/29/20 Unknown Urine Bilirubin Neg (Negative) 07/29/20 Unknown Urine Urobilinogen 4.0 mg/dL (<2.0) 07/29/20 Unknown Ur Leukocyte Esterase Mod (Negative) 07/29/20 Unknown Urine WBC (Auto) 19.0 /HPF (0.0-6.0) H 07/29/20 Unknown Urine RBC (Auto) 2.0 /HPF (0.0-6.0) 07/29/20 Unknown U Epithel Cells (Auto) 2.0 /HPF (0-13.0) 07/29/20 Unknown Coronavirus (PCR) Negative (Negative) 07/28/20 08:26 Influenza A (Rapid) Negative (Negative) 07/28/20 08:59 Influenza B (Rapid) Negative (Negative) 07/28/20 08:59 Group A Strep Rapid Negative (Negative) 07/28/20 09:00 Blood Type B POSITIVE 07/28/20 10:38 Antibody Screen Negative 07/28/20 10:38 Microbiology: Microbiology 07/28/20 08:55 Peripheral/Venous Blood Culture - Preliminary NO GROWTH AFTER 24 HOURS 07/28/20 08:50 Peripheral/Venous Blood Culture - Preliminary NO GROWTH AFTER 24 HOURS 07/28/20 09:23 Throat Group A Strep Throat Culture - Preliminary 07/28/20 Unknown Urine,Clean Catch Urine Culture - Preliminary Gram Negative Anthony Fagan/IV: Voiding Method Toilet IV Catheter Type [Left Wrist] INT / Saline Lock IV Catheter Type [Right INT / Saline Lock Forearm] Active Medications - Current Medications Current Medications: Generic Name Dose Route Start Last Admin Trade Name Freq PRN Reason Stop Dose Admin Acetaminophen 650 mg 07/28/20 11:00 07/30/20 01:11 Tylenol PO 650 mg Q6H PRN Administration Pain, Mild (1-3) Hydrocodone Bitart/Acetaminophen 1 each 07/28/20 11:00 [place] 10/325 PO Q4H PRN Pain, Moderate (4-6) Bisacodyl 10 mg 07/28/20 11:00 Dulcolax [place] QDAY PRN Constipation unrelieved by MOM Diphenhydramine HCl 25 mg 07/29/20 01:43 07/29/20 21:13 Benadryl IV 25 mg Q6H PRN Administration Itching Folic Acid 1 mg 07/29/20 10:00 07/29/20 09:43 Folvite PO 1 mg QDAY LUIS ENRIQUE Administration Hydromorphone HCl 0.25 mg 07/28/20 11:00 07/30/20 01:12 Dilaudid IV 0.25 mg Q4H PRN Administration Pain, Moderate (4-6) Ceftriaxone Sodium 2 gm in 100 mls @ 200 mls/hr 07/28/20 09:00 07/29/20 09:42 Rocephin/Ns 2 Gm/100 Ml IV 200 mls/hr NOW LUIS ENRIQUE Administration Protocol Azithromycin 500 mg/ Sodium 250 mls @ 250 mls/hr 07/28/20 11:00 07/29/20 09:42 Chloride IV 250 mls/hr Q24HR LUIS ENRIQUE Administration Protocol Dextrose/Sodium Chloride 1,000 mls @ 125 mls/hr 07/29/20 07:00 07/30/20 04:15 D5/0.45ns IV 125 mls/hr DIRECT LUIS ENRIQUE Administration Sodium Chloride 1,000 mls @ 100 mls/hr 07/29/20 07:45 Nacl 0.9% 1000 Ml IV DIRECT LUIS ENRIQUE Magnesium Hydroxide 30 ml 07/28/20 11:00 07/29/20 09:43 Milk Of Magnesia PO 30 ml Q4H PRN Administration Constipation Multivitamins 1 each 07/29/20 10:00 07/29/20 09:43 Theragran Tab PO 1 each QDAY LUIS ENRIQUE Administration Ondansetron HCl 4 mg 07/28/20 11:00 07/28/20 21:17 Zofran IV 4 mg Q8H PRN Administration Nausea And Vomiting Senna 17.2 mg 07/28/20 22:00 07/29/20 21:15 Senokot PO Not Given QHS LUIS ENRIQUE
[2020-07-30] MEDS: FOLIC ACID 1 MG TAB PO SCH (11:15)
[2020-07-30] MEDS: MULTIVITAMINS ,THERAPEUTIC TAB PO SCH (11:15)
[2020-07-30] MEDS: cefTRIAXone/NS 2 GM/100 ML 2 GM/100 ML BAG IV SCH (11:15)
[2020-07-30] MEDS: AZITHROMYCIN 500 MG in SODIUM CHLORIDE 0.9% 250ML 250 ML IV SCH (11:27)
[2020-07-30] MEDS: HYDROcodone/ACETAMINOPHEN 10-325MG TAB PO PRN ×2 (15:58→21:54)
[2020-07-30] MEDS: SENNOSIDES 8.6 MG TAB PO SCH (21:56)
[2020-07-31] MEDS: HYDROmorphone 1 MG/1 ML INJ IV PRN (02:57)
[2020-07-31] MEDS: diphenhydrAMINE 50 MG/ML VIAL IV PRN (02:58)
[2020-07-31 06:41] LABS: Hematocrit 25.2 % (30.3-42.9); Hemoglobin 8.5 gm/dl (10.1-14.3); Mean Corpuscular HGB Conc 34 % (30-34); Mean Corpuscular Volume 74 fl (79-97); Platelet Count 331 K/mm3 (140-440); Red Cell Distribution Width 19.2 % (13.2-15.2)
[2020-07-31 06:42] LABS: Basophils # (Auto) 0.2 K/mm3 (0.0-0.1); Eosinophils # (Auto) 0.6 K/mm3 (0.0-0.4); Eosinophils % (Auto) 2.9 % (0.0-4.3); Lymphocytes % (Auto) 31.8 % (13.4-35.0); Monocytes % (Auto) 9.6 % (0.0-7.3)
--- NOTE | 2020-07-31 07:05 | Progress Note ---
Assessment and Plan Assessment and plan: Sickle cell vaso-occlusive crisis. Patient will be placed on the sickle cell pathway and treated with supportive care of IV pain medication and IV fluid hydration. Sepsis. Patient meets criteria given the leukocytosis, tachycardia and diagnosis of acute bronchitis. Check rapid flu, to appropriately cohort patient for PUI, chest x-ray, follow-up blood cultures, lactic acid, urinalysis, administer albuterol, pain medication, fluids, ceftriaxone, Covid screen, and admit patient to medical floor. Community-acquired right lower lobe pneumonia. IV antibiotics. GNR UTI. 07/29/2020. Continue IV antibiotics and follow-up blood cultures. Continue supportive care with IV fluid hydration, pain control. 07/30/2020. Continue IV antibiotics. Urine culture reveals gram-negative rods. Follow-up blood cultures. Patient still with low-grade fever. Anticipate discharge in a.m. if stable and fevers better. 07/31/2020; patient has E. coli, no fever overnight, tachycardia resolved. Patient still has leukocytosis. Possible discharge today History Interval history: Patient was seen and evaluated this morning Hospitalist Physical - Physical exam Narrative exam: Not in cardiopulmonary distress. The patient appeared well nourished and normally developed. Vital signs as documented. Head exam is unremarkable. No scleral icterus . Neck is without jugular venous distension, thyromegaly, or carotid bruits. Lungs are clear to auscultation. Cardiac exam reveals regular rate and Rhythm. Abdominal exam reveals normal bowel sounds, nontender, no organomegaly. Extremities are nonedematous and both femoral and pedal pulses are normal. PERSONAL PROTECTION SPECIALIST: Alert and oriented 3. No focal weakness. - Constitutional Vitals: Temp Pulse Resp BP Pulse Ox 98.4 F 89 16 114/60 98 07/31/20 04:26 07/31/20 04:26 07/31/20 04:26 07/31/20 04:26 07/31/20 04:26 General appearance: Present: no acute distress, well-nourished Results - Labs CBC & Chem 7: 07/31/20 04:21 07/30/20 06:57 Labs: Laboratory Last Values WBC 20.5 K/mm3 (4.5-11.0) H 07/31/20 04:21 RBC 3.40 M/mm3 (3.65-5.03) L 07/31/20 04:21 Hgb 8.5 gm/dl (10.1-14.3) L 07/31/20 04:21 Hct 25.2 % (30.3-42.9) L 07/31/20 04:21 MCV 74 fl (79-97) L 07/31/20 04:21 MCH 25 pg (28-32) L 07/31/20 04:21 MCHC 34 % (30-34) 07/31/20 04:21 RDW 19.2 % (13.2-15.2) H 07/31/20 04:21 Plt Count 331 K/mm3 (140-440) 07/31/20 04:21 Lymph % (Auto) 31.8 % (13.4-35.0) 07/31/20 04:21 Saline % (Auto) 9.6 % (0.0-7.3) H 07/31/20 04:21 Eos % (Auto) 2.9 % (0.0-4.3) 07/31/20 04:21 Baso % (Auto) 1.0 % (0.0-1.8) 07/31/20 04:21 Lymph # (Auto) Talent Acquisition Manager 07/31/20 04:21 Saline # (Auto) 2.0 K/mm3 (0.0-0.8) H 07/31/20 04:21 Eos # (Auto) 0.6 K/mm3 (0.0-0.4) H 07/31/20 04:21 Baso # (Auto) 0.2 K/mm3 (0.0-0.1) H 07/31/20 04:21 Add Manual Diff Complete 07/30/20 06:57 Total Counted 100 07/30/20 06:57 Seg Neutrophils % 54.7 % (40.0-70.0) 07/31/20 04:21 Seg Neuts % (Manual) 68.0 % (40.0-70.0) 07/30/20 06:57 Band Neutrophils % 0 % 07/30/20 06:57 Lymphocytes % (Manual) 27.0 % (13.4-35.0) 07/30/20 06:57 Reactive Lymphs % (Man) 0 % 07/30/20 06:57 Monocytes % (Manual) 5.0 % (0.0-7.3) 07/30/20 06:57 Eosinophils % (Manual) 0 % (0.0-4.3) 07/30/20 06:57 Basophils % (Manual) 0 % (0.0-1.8) 07/30/20 06:57 Metamyelocytes % 0 % 07/30/20 06:57 Myelocytes % 0 % 07/30/20 06:57 Promyelocytes % 0 % 07/30/20 06:57 Blast Cells % 0 % 07/30/20 06:57 Nucleated RBC % Not Reportable 07/30/20 06:57 Seg Neutrophils # 11.2 K/mm3 (1.8-7.7) H 07/31/20 04:21 Seg Neutrophils # Man 14.3 K/mm3 (1.8-7.7) H 07/30/20 06:57 Band Neutrophils # 0.0 K/mm3 07/30/20 06:57 Lymphocytes # (Manual) 5.7 K/mm3 (1.2-5.4) H 07/30/20 06:57 Abs React Lymphs (Man) 0.0 K/mm3 07/30/20 06:57 Monocytes # (Manual) 1.1 K/mm3 (0.0-0.8) H 07/30/20 06:57 Eosinophils # (Manual) 0.0 K/mm3 (0.0-0.4) 07/30/20 06:57 Basophils # (Manual) 0.0 K/mm3 (0.0-0.1) 07/30/20 06:57 Metamyelocytes # 0.0 K/mm3 07/30/20 06:57 Myelocytes # 0.0 K/mm3 07/30/20 06:57 Promyelocytes # 0.0 K/mm3 07/30/20 06:57 Blast Cells # 0.0 K/mm3 07/30/20 06:57 WBC Morphology Not Reportable 07/30/20 06:57 Hypersegmented Neuts Not Reportable 07/30/20 06:57 Hyposegmented Neuts Not Reportable 07/30/20 06:57 Hypogranular Neuts Not Reportable 07/30/20 06:57 Smudge Cells Not Reportable 07/30/20 06:57 Toxic Granulation Not Reportable 07/30/20 06:57 Toxic Vacuolation Not Reportable 07/30/20 06:57 Dohle Bodies Not Reportable 07/30/20 06:57 Pelger-Huet Anomaly Not Reportable 07/30/20 06:57 Melissa Rods Not Reportable 07/30/20 06:57 Platelet Estimate Consistent w auto 07/30/20 06:57 Clumped Platelets Not Reportable 07/30/20 06:57 Plt Clumps, EDTA Not Reportable 07/30/20 06:57 Large Platelets Few 07/30/20 06:57 Giant Platelets Not Reportable 07/30/20 06:57 Platelet Satelliting Not Reportable 07/30/20 06:57 Plt Morphology Comment Not Reportable 07/30/20 06:57 RBC Morphology Not Reportable 07/30/20 06:57 Dimorphic RBCs Not Reportable 07/30/20 06:57 Polychromasia Few 07/30/20 06:57 Hypochromasia Not Reportable 07/30/20 06:57 Poikilocytosis Not Reportable 07/30/20 06:57 Anisocytosis Not Reportable 07/30/20 06:57 Microcytosis Not Reportable 07/30/20 06:57 Macrocytosis 1+ 07/30/20 06:57 Spherocytes Not Reportable 07/30/20 06:57 Pappenheimer Bodies Not Reportable 07/30/20 06:57 Sickle Cells 1+ 07/30/20 06:57 Target Cells 1+ 07/30/20 06:57 Tear Drop Cells Not Reportable 07/30/20 06:57 Ovalocytes Not Reportable 07/30/20 06:57 Helmet Cells Not Reportable 07/30/20 06:57 [place]-Morris Bodies Not Reportable 07/30/20 06:57 [place] Rings Not Reportable 07/30/20 06:57 [place] Cells Not Reportable 07/30/20 06:57 Bite Cells Not Reportable 07/30/20 06:57 Crenated Cell Not Reportable 07/30/20 06:57 Elliptocytes Not Reportable 07/30/20 06:57 Acanthocytes (Spur) Not Reportable 07/30/20 06:57 Rouleaux Not Reportable 07/30/20 06:57 Hemoglobin C Crystals Not Reportable 07/30/20 06:57 Schistocytes Not Reportable 07/30/20 06:57 Malaria parasites Not Reportable 07/30/20 06:57 Percent Retic 4.18 % (0.78-2.58) H 07/31/20 04:21 Hugo Bodies Not Reportable 07/30/20 06:57 Hem Pathologist Commnt No 07/30/20 06:57 Sodium 138 mmol/L (137-145) 07/30/20 06:57 Potassium 3.8 mmol/L (3.6-5.0) 07/30/20 06:57 Chloride 103.0 mmol/L (98-107) 07/30/20 06:57 Carbon Dioxide 28 mmol/L (22-30) D 07/30/20 06:57 Anion Gap 11 mmol/L 07/30/20 06:57 BUN 4 mg/dL (7-17) L 07/30/20 06:57 Creatinine 0.7 mg/dL (0.6-1.2) 07/30/20 06:57 Estimated GFR > 60 ml/min 07/30/20 06:57 BUN/Creatinine Ratio 6 % 07/30/20 06:57 Glucose 93 mg/dL (65-100) 07/30/20 06:57 Lactic Acid 0.90 mmol/L (0.7-2.0) 07/28/20 08:50 Calcium 8.9 mg/dL (8.4-10.2) 07/30/20 06:57 Magnesium 1.90 mg/dL (1.7-2.3) 07/28/20 08:50 Total Creatine Kinase 86 units/L (30-135) 07/28/20 08:50 HCG, Qual Negative (Negative) 07/28/20 04:06 Urine Color Yellow (Yellow) 07/29/20 Unknown Urine Turbidity Clear (Clear) 07/29/20 Unknown Urine pH 7.0 (5.0-7.0) 07/29/20 Unknown Ur Specific [place] 1.004 (1.003-1.030) 07/29/20 Unknown Urine Protein <15 mg/dl mg/dL (Negative) 07/29/20 Unknown Urine Glucose (UA) Neg mg/dL (Negative) 07/29/20 Unknown Urine Ketones Neg mg/dL (Negative) 07/29/20 Unknown Urine Blood Sm (Negative) 07/29/20 Unknown Urine Nitrite Neg (Negative) 07/29/20 Unknown Urine Bilirubin Neg (Negative) 07/29/20 Unknown Urine Urobilinogen 4.0 mg/dL (<2.0) 07/29/20 Unknown Ur Leukocyte Esterase Mod (Negative) 07/29/20 Unknown Urine WBC (Auto) 19.0 /HPF (0.0-6.0) H 07/29/20 Unknown Urine RBC (Auto) 2.0 /HPF (0.0-6.0) 07/29/20 Unknown U Epithel Cells (Auto) 2.0 /HPF (0-13.0) 07/29/20 Unknown Coronavirus (PCR) Negative (Negative) 07/28/20 08:26 Influenza A (Rapid) Negative (Negative) 07/28/20 08:59 Influenza B (Rapid) Negative (Negative) 07/28/20 08:59 Group A Strep Rapid Negative (Negative) 07/28/20 09:00 Blood Type B POSITIVE 07/28/20 10:38 Antibody Screen Negative 07/28/20 10:38 Microbiology: Microbiology 07/28/20 09:23 Throat Group A Strep Throat Culture - Final 07/28/20 Unknown Urine,Clean Catch Urine Culture - Final Escherichia Coli 07/28/20 08:55 Peripheral/Venous Blood Culture - Preliminary NO GROWTH AFTER 48 HOURS 07/28/20 08:50 Peripheral/Venous Blood Culture - Preliminary NO GROWTH AFTER 48 HOURS [place]/IV: Voiding Method Toilet IV Catheter Type [Left Wrist] INT / Saline Lock IV Catheter Type [Right INT / Saline Lock Forearm] Active Medications - Current Medications Current Medications: Generic Name Dose Route Start Last Admin Trade Name Freq PRN Reason Stop Dose Admin Acetaminophen 650 mg 07/28/20 11:00 07/30/20 01:11 Tylenol PO 650 mg Q6H PRN Administration Pain, Mild (1-3) Hydrocodone Bitart/Acetaminophen 1 each 07/28/20 11:00 07/30/20 21:54 [place] 10/325 PO 1 each Q4H PRN Administration Pain, Moderate (4-6) Bisacodyl 10 mg 07/28/20 11:00 Dulcolax NV QDAY PRN Constipation unrelieved by MOM Diphenhydramine HCl 25 mg 07/29/20 01:43 07/31/20 02:58 Benadryl IV 25 mg Q6H PRN Administration Itching Folic Acid 1 mg 07/29/20 10:00 07/30/20 11:15 Folvite PO 1 mg QDAY LUIS ENRIQUE Administration Hydromorphone HCl 0.25 mg 07/28/20 11:00 07/31/20 02:57 Dilaudid IV 0.25 mg Q4H PRN Administration Pain, Moderate (4-6) Azithromycin 500 mg/ Sodium 250 mls @ 250 mls/hr 07/28/20 11:00 07/30/20 11:27 Chloride IV 08/01/20 10:59 250 mls/hr Q24HR LUIS ENRIQUE Administration Protocol Dextrose/Sodium Chloride 1,000 mls @ 125 mls/hr 07/29/20 07:00 07/30/20 21:57 D5/0.45ns IV 125 mls/hr DIRECT LUIS ENRIQUE Administration Sodium Chloride 1,000 mls @ 100 mls/hr 07/29/20 07:45 Nacl 0.9% 1000 Ml IV DIRECT LUIS ENRIQUE Ceftriaxone Sodium 2 gm in 100 mls @ 200 mls/hr 07/31/20 10:00 Rocephin/Ns 2 Gm/100 Ml IV 08/03/20 12:00 Q24HR LUIS ENRIQUE Magnesium Hydroxide 30 ml 07/28/20 11:00 07/29/20 09:43 Milk Of Magnesia PO 30 ml Q4H PRN Administration Constipation Multivitamins 1 each 07/29/20 10:00 07/30/20 11:15 Theragran Tab PO 1 each QDAY LUIS ENRIQUE Administration Ondansetron HCl 4 mg 07/28/20 11:00 07/28/20 21:17 Zofran IV 4 mg Q8H PRN Administration Nausea And Vomiting Senna 17.2 mg 07/28/20 22:00 07/30/20 21:56 Senokot PO 17.2 mg QHS LUIS ENRIQUE Administration
[2020-07-31] MEDS: FOLIC ACID 1 MG TAB PO SCH (09:31)
[2020-07-31] MEDS: MULTIVITAMINS ,THERAPEUTIC TAB PO SCH (09:31)
[2020-07-31] MEDS: D5W/0.45% NACL 1,000 ML IV SCH (09:31)
[2020-07-31] MEDS: AZITHROMYCIN 500 MG in SODIUM CHLORIDE 0.9% 250ML 250 ML IV SCH (09:33)
[2020-07-31] MEDS ORDERED: cefTRIAXone/NS 2 GM/100 ML 2 GM/100 ML BAG IV SCH (10:00)
--- NOTE | 2020-07-31 10:59 | Discharge Summary ---
Providers - Providers Date of Admission: 07/28/20 09:17 Date of discharge: 07/31/20 Attending physician: GAUDENCIO ADAMSON MD [facility] Reason for admission: pneumonia, UTI Condition: Good Pertinent studies: Chest x-ray Hospital course: 24-year-old female with significant past medical history of sickle cell disease presents with complaint of bilateral lower extremity, and upper extremity pain beginning last night progressively worsening this morning associated with flu- like symptoms including sore throat, dry cough, chills and rigors but no fever. The patient denies loss of taste or exposure to Covid positive individuals. No headache or visual disturbances. She does report shortness of breath with minimal exertion. Patient was admitted to the floor and Covid test was done and negative, flu test was done and negative, blood culture was negative, chest x-ray was done and significant for right lower lobe pneumonia versus atelectasis. Patient has sepsis due to UTI versus right-sided pneumonia. It was treated with IV ceftriaxone and Rocephin. Patient's fever resolved. Patient was saturating well on room air. Patient had leukocytosis but is trending down. Patient is doing well and discharged home with oral Levaquin for 5 more days. Urine culture was done and significant for E. coli. Appropriate medication scripts were reconciled at the time of discharge. Patient concerns and questions were addressed at the bedside. Disposition: - TO HOME OR SELFCARE Time spent for discharge: 32 minutes - Discharge Diagnoses (1) Pneumonia Status: Acute Qualifiers: Pneumonia type: due to unspecified organism Laterality: right Lung location: lower lobe of lung Qualified Code(s): J18.9 - Pneumonia, unspecified organism (2) UTI (urinary tract infection) Status: Acute Qualifiers: Urinary tract infection type: acute cystitis Hematuria presence: without hematuria Qualified Code(s): N30.00 - Acute cystitis without hematuria Core Measure Documentation - Palliative Care Palliative Care/ Comfort Measures: Not Applicable - Core Measures Any of the following diagnoses?: none Exam - Physical Exam Narrative exam: Not in cardiopulmonary distress. The patient appeared well nourished and normally developed. Vital signs as documented. Head exam is unremarkable. No scleral icterus . Neck is without jugular venous distension, thyromegaly, or carotid bruits. Lungs are clear to auscultation. Cardiac exam reveals regular rate and Rhythm. Abdominal exam reveals normal bowel sounds, nontender, no organomegaly. Extremities are nonedematous and both femoral and pedal pulses are normal. CALL CENTER AGENT: Alert and oriented 3. No focal weakness. - Constitutional Vitals: Temp Pulse Resp BP Pulse Ox 98.4 F 89 16 114/60 98 07/31/20 04:26 07/31/20 04:26 07/31/20 04:26 07/31/20 04:26 07/31/20 04:26 Plan Activity: no restrictions Weight Bearing Status: Full Weight Bearing Diet: regular [facility] [Primary Care Provider] - 3-5 Days Prescriptions: levoFLOXacin [Levaquin] 750 mg PO QDAY #5 tablet HYDROcodone/APAP 10-325 [[place] 10-325 mg TAB] 1 each PO Q4H PRN #12 tablet PRN Reason: Pain, Moderate (4-6)
[2020-07-31 12:57] VITALS: BP 112/67
== END 2020-07-31 15:30 | disposition home or self-care (01) | DRG 871 ==
LOC: ED 02:50 → 3A 09:17
PROVIDERS: ADMIT Hospitalist; ATTEND Internal Medicine
DX: A41.9 Sepsis, unspecified organism (principal); D57.00 Hb-SS disease with crisis, unspecified; J18.9 Pneumonia, unspecified organism; N39.0 Urinary tract infection, site not specified; Z20.828 Contact with and (suspected) exposure to other viral communicable diseases; R65.10 Systemic inflammatory response syndrome (SIRS) of non-infectious origin without acute organ dysfunction; D72.829 Elevated white blood cell count, unspecified; J20.9 Acute bronchitis, unspecified; Z79.899 Other long term (current) drug therapy; Z79.891 Long term (current) use of opiate analgesic; Z79.01 Long term (current) use of anticoagulants
CPT/HCPCS: 36415; 71045; 80048; 81001; 82140; 82550; 83735; 84703; 85007; 85025; 85045; 86850; 86900; 86901; 87040; 87076; 87086; 87116; 87186; 87400; 87430; 93005; 94640; 96374; 96375; 96376; G0378; J0456; J0696; J1170; J1200; J2270; J2405; J7050; J7120; U0003

== ENCOUNTER 2021-12-16 11:59 | Emergency (ER) | payer SELFPAY ==
[2021-12-16] MEDS ORDERED: ONDANSETRON 4 MG ODT TAB PO ONE (15:50)
[2021-12-16] MEDS ORDERED: SUMAtriptan SUCCINATE 25 MG TAB PO NR (16:00)
--- NOTE | 2021-12-16 16:07 | Emergency Department Report ---
ED Headache HPI - General Chief Complaint: Headache Stated Complaint: PAINFUL HEADACHE Time Seen by Provider: 12/16/21 15:26 - History of Present Illness Initial Comments: Patient is a 26-year-old female presents emergency room complaints of a frontal headache that began 2 weeks ago. She states that she has been using peppermint oil and drinking tea without much relief. She has not tried any medications. She denies any fall, injury, trauma. She denies any vision changes, neck stiffness, fever, chills, numbness, weakness, speech disturbance, gait disturbance, sinus pressure, rhinorrhea. She states 2 weeks ago she had episode of nausea vomiting during her menstrual cycle but states that completely resolved. Patient has a past medical history of sickle cell anemia and does not currently see a primary care doctor or a shingle cutter, she states that she manages it at home by herself. She denies any sickle cell pain, chest pain, shortness of breath. No allergies to medications. Allergies/Adverse Reactions: Allergies No Known Allergies Allergy (Verified 12/16/21 14:26) Home Medications: Ambulatory Orders Acetaminophen [Acetaminophen ER] 650 mg PO Q4H PRN 07/28/20 HYDROcodone/APAP 10-325 [[place] 10-325 mg TAB] 1 each PO Q4H PRN #12 tablet 07/31/20 levoFLOXacin [Levaquin] 750 mg PO QDAY #5 tablet 07/31/20 Ondansetron [Zofran Odt] 4 mg PO Q8HR PRN #12 tab.rapdis 12/16/21 SUMAtriptan SUCCINATE [Imitrex] 25 mg PO BID PRN #12 tab 12/16/21 ED Review of Systems ROS: Stated complaint: PAINFUL HEADACHE Other details as noted in HPI Comment: All other systems reviewed and negative ED Past Medical Hx - Past Medical History Previous Medical History?: Yes Hx Sickle Cell Disease: Yes - Social History Smoking Status: Never Smoker Substance Use Type: None - Medications Home Medications: Home Medications Medication Instructions Recorded Confirmed Last Taken Type Acetaminophen [Acetaminophen ER] 650 mg PO Q4H PRN 07/28/20 07/28/20 Unknown History HYDROcodone/APAP 10-325 [[place] 1 each PO Q4H PRN #12 tablet 07/31/20 Unknown Rx 10-325 mg TAB] levoFLOXacin [Levaquin] 750 mg PO QDAY #5 tablet 07/31/20 Unknown Rx Ondansetron [Zofran Odt] 4 mg PO Q8HR PRN #12 tab.rapdis 12/16/21 Unknown Rx SUMAtriptan SUCCINATE [Imitrex] 25 mg PO BID PRN #12 tab 12/16/21 Unknown Rx ED Physical Exam - General Limitations: No Limitations General appearance: alert, in no apparent distress - Head Head exam: Present: atraumatic, normocephalic - Eye Eye exam: Present: normal appearance - ENT ENT exam: Present: mucous membranes moist - Respiratory Respiratory exam: Present: normal lung sounds bilaterally. Absent: respiratory distress, wheezes, rales, rhonchi, stridor, chest wall tenderness, accessory muscle use, decreased breath sounds, prolonged expiratory - Cardiovascular Cardiovascular Exam: Present: regular rate, normal rhythm, normal heart sounds. Absent: systolic murmur, diastolic murmur, rubs, gallop - Neurological Exam Neurological exam: Present: alert, oriented X3, CN II-XII intact, normal gait. Absent: motor sensory deficit - Expanded Neurological Exam Expanded Patient oriented to: Present: person, place, time Speech: Present: fluid speech Cranial nerves: EOM's Intact: Normal, Gag Reflex: Normal, Facial Sensation: Normal Cerebellar function: Finger to Nose: Normal, Heel to [place]: Normal, Romberg: Normal Upper motor neuron: Pronator Drift: Normal, Sensory Extinction: Normal Motor strength exam: RUE: 5, LUE: 5, RLE: 5, LLE: 5 Best Eye Response (Driver): (4) open spontaneously Best Motor Response (Driver): (6) obeys commands Best Verbal Response (Beckie): (5) oriented Beckie Total: 15 - Psychiatric Psychiatric exam: Present: normal affect, normal mood - Skin Skin exam: Present: warm, dry, intact ED Course Vital Signs 12/16/21 12/16/21 14:26 17:06 Temperature 98.5 F 98.2 F Pulse Rate 76 72 Respiratory 17 12 Rate Blood Pressure 114/69 Blood Pressure 132/84 [Right] O2 Sat by Pulse 100 98 Oximetry ED Medical Decision Making - Lab Data Result diagrams: 12/16/21 16:00 12/16/21 16:00 Lab Results 12/16/21 12/16/21 12/16/21 Range/Units 16:00 16:00 16:00 WBC 14.3 H (4.5-11.0) K/mm3 RBC 4.43 (3.65-5.03) M/mm3 Hgb 11.5 (10.1-14.3) gm/dl Hct 33.7 (30.3-42.9) % MCV 76 L (79-97) fl MCH 26 L (28-32) pg MCHC 34 (30-34) % RDW 17.7 H (13.2-15.2) % Plt Count 410 (140-440) K/mm3 Lymph % (Auto) 30.9 (13.4-35.0) % [place] % (Auto) 8.3 H (0.0-7.3) % Eos % (Auto) 2.1 (0.0-4.3) % Baso % (Auto) 1.0 (0.0-1.8) % Lymph # (Auto) 4.4 (1.2-5.4) K/mm3 [place] # (Auto) 1.2 H (0.0-0.8) K/mm3 Eos # (Auto) 0.3 (0.0-0.4) K/mm3 Baso # (Auto) 0.1 (0.0-0.1) K/mm3 Seg Neutrophils % 57.7 (40.0-70.0) % Seg Neutrophils # 8.2 H (1.8-7.7) K/mm3 Sodium 136 L (137-145) mmol/L Potassium 3.6 (3.6-5.0) mmol/L Chloride 100.4 (98-107) mmol/L Carbon Dioxide 25 (22-30) mmol/L Anion Gap 14 mmol/L BUN 4 L (7-17) mg/dL Creatinine 0.6 (0.6-1.2) mg/dL Estimated GFR > 60 ml/min BUN/Creatinine Ratio 7 % Glucose 105 H (65-100) mg/dL Calcium 9.2 (8.4-10.2) mg/dL Total Bilirubin 0.70 (0.1-1.2) mg/dL AST 14 (5-40) units/L ALT 11 (7-56) units/L Alkaline Phosphatase 79 (35-129) units/L Total Protein 7.9 (6.3-8.2) g/dL Albumin 3.9 (3.9-5) g/dL Albumin/Globulin Ratio 1.0 % HCG, Qual Negative (Negative) - Medical Decision Making Patient is a 26-year-old female presents emergency room complaints of a frontal headache that began 2 weeks ago. She states that she has been using peppermint oil and drinking tea without much relief. She has not tried any medications. She denies any fall, injury, trauma. She denies any vision changes, neck stiffness, fever, chills, numbness, weakness, speech disturbance, gait disturbance, sinus pressure, rhinorrhea. She states 2 weeks ago she had episode of nausea vomiting during her menstrual cycle but states that completely resolved. Patient has a past medical history of sickle cell anemia and does not currently see a primary care doctor or a shingle cutter, she states that she manages it at home by herself. She denies any sickle cell pain, chest pain, shortness of breath. No allergies to medications. Vitals are normal. Patient has had no fall or trauma. Patient has no fever or meningeal signs. Patient is not having sinus pressure rhinorrhea. Symptoms appear likely consistent with a migraine headache. H&H is normal. White blood cell count has significantly improved from previous. Patient will be referred to primary care doctor and neurology. Discussed the importance of outpatient follow-up. Discussed return precautions advised return to emergency room for any new or worsening symptoms. Critical care attestation.: If time is entered above; I have spent that time in minutes in the direct care of this critically ill patient, excluding procedure time. ED Disposition Clinical Impression: Headache Qualifiers: Headache type: unspecified Headache chronicity pattern: acute headache Intractability: not intractable Qualified Code(s): R51.9 - Headache, unspecified Disposition: 01 HOME / SELF CARE / HOMELESS Is pt being admited?: No Does the pt Need Aspirin: No Condition: Stable Instructions: Migraine Headache, [id number] Additional Instructions: Please take medication as prescribed as needed. Increase your fluid intake. Follow-up with your primary care doctor. Follow-up with a neurologist. Return to emergency room for any new or worsening symptoms. Prescriptions: SUMAtriptan SUCCINATE [Imitrex] 25 mg PO BID PRN #12 tab PRN Reason: headache Ondansetron [Zofran Odt] 4 mg PO Q8HR PRN #12 tab.rapdis PRN Reason: nausea vomiting Referrals: PRIMARY CARE,MD [Primary Care Provider] - 3-5 Days Time of Disposition: 16:53 Print Language: TAJIK
[2021-12-16 16:26] LABS: Basophils # (Auto) 0.1 K/mm3 (0.0-0.1); Eosinophils # (Auto) 0.3 K/mm3 (0.0-0.4); Eosinophils % (Auto) 2.1 % (0.0-4.3); Hematocrit 33.7 % (30.3-42.9); Hemoglobin 11.5 gm/dl (10.1-14.3); Lymphocytes # (Auto) 4.4 K/mm3 (1.2-5.4); Lymphocytes % (Auto) 30.9 % (13.4-35.0); Mean Corpuscular HGB Conc 34 % (30-34); Mean Corpuscular Volume 76 fl (79-97); Monocytes # (Auto) 1.2 K/mm3 (0.0-0.8); Monocytes % (Auto) 8.3 % (0.0-7.3); Platelet Count 410 K/mm3 (140-440); Red Blood Count 4.43 M/mm3 (3.65-5.03); Red Cell Distribution Width 17.7 % (13.2-15.2)
[2021-12-16 16:46] LABS: Alanine Aminotransferase 11 units/L (7-56); Albumin 3.9 g/dL (3.9-5); Blood Urea Nitrogen 4 mg/dL (7-17); Calcium 9.2 mg/dL (8.4-10.2); Hemolysis Index 5
[2021-12-16 16:49] LABS: BUN/Creatinine Ratio 7
[2021-12-16 17:08] VITALS: BP 132/84
== END 2021-12-16 17:07 | disposition home or self-care (01) ==
LOC: ED 11:59
DX: R51.9 Headache, unspecified (principal)
CPT/HCPCS: 36415; 80053; 84703; 85025; 99283; J3490; Q0162